=== PATIENT | female | born 1955 | race Hispanic/Latino ===

== ENCOUNTER 2017-10-11 15:33 | Outpatient (CLI) | payer BC | END 2017-10-11 15:34 | disposition home or self-care (01) | LOC: BICMAMMO 15:33 | PROVIDERS: ATTEND Family Medicine | DX: Z12.31 Encounter for screening mammogram for malignant neoplasm of breast (principal) | CPT/HCPCS: 77063; 77067 ==

== ENCOUNTER 2018-02-21 07:55 | Day surgery (SDC) | payer BC ==
[2018-02-21] MEDS ORDERED: Ondansetron PF 4 MG/2 ML Vial ONE (13:08)
[2018-02-21] MEDS ORDERED: Succinylcholine Chloride 20 MG/ML 10 ml SYRINGE FS ONE (13:08)
[2018-02-21] MEDS ORDERED: PROPOFOL 200 MG/20 ML VIAL ONE (13:08)
--- NOTE | 2018-02-21 15:40 | CON ---
DATE OF CONSULTATION: 02/21/2018 REASON FOR CONSULTATION: Esophageal food impaction. CONSULTING PHYSICIAN: Dr. Luis F Sethi. HISTORY OF PRESENT ILLNESS: The patient is a 62-year-old female with past medical history of seasonal allergies, hyperlipidemia, and hypertension, who is presenting with complaints of dysphagia/esophageal food impaction. She states that she was in her usual state of health until approximately 5:20 this morning when she swallowed a clove of garlic as part of a preventative health maintenance related to recent illnesses that she had been experiencing. When she experienced the sensation that the clove got stuck at the level of the thyroid cartilage, despite measures to drink plenty of fluids as well as induce vomiting were unsuccessful, which then prompted her to seek healthcare assistance. She went to the [facility], where she was evaluated by the physicians there with a CT scan confirming the presence of a foreign body within the esophagus on CT. Given these findings, she was subsequently transferred to [facility] for further evaluation. At this time, she does continue to complain of the sensation that something is stuck at the level of the thyroid cartilage, but is able to tolerate some liquids and end her own secretions, albeit very slowly when she does actually consume any liquids. She does endorse a history of acid reflux as well, but she is not currently taking any medications. She does also endorse intermittent use of NSAIDs, taking ibuprofen 200 to 400 mg when she does, but last use was approximately 2 to 3 weeks ago. Currently, she denies any nausea, vomiting, fevers, chills, abdominal pain, diarrhea, constipation, or GI bleeding. REVIEW OF SYSTEMS: A 10-category review of systems was obtained with all responses negative except for the pertinent positives as listed in the HPI. PAST MEDICAL HISTORY: Seasonal allergies, hyperlipidemia, hypertension, and recent bout of herpes zoster infection. PAST SURGICAL HISTORY: Cholecystectomy, tonsillectomy, total hysterectomy, appendectomy, and an EGD 30 years ago. FAMILY HISTORY: Denies any GI malignancies. SOCIAL HISTORY: Denies any tobacco, alcohol, or illicit drug use. ALLERGIES: NO KNOWN DRUG ALLERGIES. OUTPATIENT MEDICATIONS: Include; 1. Zyrtec as needed. 2. Singulair daily. 3. Atorvastatin daily. 4. Vitamin D daily. PHYSICAL EXAMINATION: VITAL SIGNS: No vital signs were listed in the computer as of yet. GENERAL: The patient is lying in bed, in no acute distress. Alert and oriented x4. HEENT AND NECK: Neck supple. No JVD or scleral icterus noted. CARDIOVASCULAR: Tachycardic rate, but regular rhythm without any discernible murmurs, gallops, or rubs. RESPIRATORY: Clear to auscultation bilaterally with no discernible wheezes or rales. ABDOMEN: Normoactive bowel sounds. Soft, nontender, and nondistended. EXTREMITIES: No cyanosis, clubbing, or edema. LABORATORY DATA: No current studies are available for review. IMAGING DATA: CT scan obtained at the [facility] [place] showed a esophageal foreign body located in the proximal and mid esophagus. ASSESSMENT AND PLAN: The patient is a 62-year-old female with past medical history of seasonal allergies, hyperlipidemia, hypertension, acid reflux, and recent bout of herpes zoster infection, presenting with esophageal food bolus impaction. 1. Food bolus impaction: The patient is presenting with a recent ingestion of a large clove of garlic that she was taking as part of preventative health measures related to recent illnesses she has been having and experiencing acute onset dysphagia characterized as a sensation that food was getting stuck at the level of the thyroid cartilage. She sought healthcare assistance at an [facility]gent [facility] with CT scan confirming the finding of an esophageal food bolus impaction and was subsequently transferred to [facility] for further care. At this time, the patient does have confirmation and clinical signs consistent with a food bolus impaction and would benefit from urgent endoscopy for removal of the foreign body. RECOMMENDATIONS: 1. We will continue n.p.o. Status. 2. We will plan for EGD later this morning with removal of the foreign body. 3. Further recommendations to follow. Job ID: [id number]
--- NOTE | 2018-02-21 16:12 | OP ---
DATE OF PROCEDURE: 02/21/2018 PROCEDURE: Esophagogastroduodenoscopy with food bolus/foreign body removal. INDICATION FOR PROCEDURE: Esophageal food bolus impaction. DESCRIPTION OF PROCEDURE: After the risks and benefits of the procedure were explained to the patient including risks of bleeding, infection, perforation, reactions to anesthesia, aspiration, and/or pain, informed consent was obtained. The patient was then taken to the endoscopy suite, where general anesthesia was administered with endotracheal intubation via Anesthesia support. Once the patient was adequately sedated and intubated, she was transferred to the left lateral decubitus position and with introduction of the standard gastroscope into the mouth and intubation of the esophagus, stomach and the proximal small intestine with the findings listed below. The patient tolerated the procedure well with no immediate perioperative complications. At the conclusion of the procedure, all equipment was removed and the patient was taken to PACU in satisfactory condition. FINDINGS: Esophagus: The food bolus/garlic clove was seen at the just distal to the upper esophageal sphincter and had impacted itself essentially on the upper esophageal sphincter. It occupied pretty much the entire esophageal lumen at that point with no visualization of the mucosa beyond. Using rat-tooth forceps, the garlic clove was then able to be successfully grasped and retrieved through the mouth. The gastroscope was then intubated into the esophagus with normal-appearing mucosa seen in the proximal, mid, and distal esophagus. There was no evidence of erosions, ulcerations, mass, lesions, stricture/stenosis, or active/recent bleeding. With careful examination of the upper esophageal sphincter, there was no stricture/choke point or inlet patch that could contribute to stricture formation. Stomach: Normal-appearing mucosa was seen in the gastric cardia, fundus, body, greater curvature, antrum, and incisura. There was no evidence of erosions, ulcerations, mass, lesions, or active/recent bleeding. Duodenum: Normal-appearing mucosa was seen in both the duodenal bulb and second portion of the duodenum. There was no evidence of erosions, ulcerations, mass, lesions, or active/recent bleeding. IMPRESSION: 1. Esophageal food bolus impaction at the upper esophageal sphincter primarily due to size of the food bolus itself with no evidence of stricture/stenosis in this region, now status post successful extraction of the food bolus. 2. Otherwise, normal upper endoscopy. RECOMMENDATIONS: 1. We would recommend the patient to maintain a liquid diet for the next 24 hours and then advance the diet as tolerated. 2. We will consider more routine administration of PPI as an outpatient, but will be determined in clinic. 3. We would have the patient follow up in the GI clinic in 3 weeks for further evaluation of any additional dysphagia type symptoms. Job ID: [id number]
== END 2018-02-21 11:25 | disposition home or self-care (01) ==
LOC: SDC 07:55
PROVIDERS: ATTEND Internal Medicine
PROC: 0DC18ZZ Extirpation of Matter from Upper Esophagus, Via Natural or Artificial Opening Endoscopic (ICD-10-PCS; principal; 2018-02-21)
DX: T18.128A Food in esophagus causing other injury, initial encounter (principal); I10 Essential (primary) hypertension; E78.5 Hyperlipidemia, unspecified; J30.2 Other seasonal allergic rhinitis; Z79.899 Other long term (current) drug therapy
CPT/HCPCS: J2405; J2704

== ENCOUNTER 2018-04-11 08:00 | Outpatient (CLI) | payer BC ==
--- NOTE | 2018-04-11 10:44 | RAD ---
DOUBLE CONTRAST ESOPHAGRAM: INDICATION: Dysphagia. FLUOROSCOPIC TIME: 1.9 minutes. Total exposure 29.9 uGy*^cm2. FINDINGS: No intraluminal mass or stricture is identified. There are tertiary contractions involving the mid t o distal esophagus. No hiatal hernia is evident. No reflux was elicited with Valsalva maneuvers. A 13 mm barium tablet passed without difficulty. IMPRESSION: 1. Tertiary contractions to the mid to distal esophagus may be related to mild esophagitis or presby esophagus. 2. No intraluminal mass, stricture, or reflux demonstrated. POS: SHELLI
== END 2018-04-11 08:01 | disposition home or self-care (01) ==
LOC: RAD 08:00
PROVIDERS: ATTEND Internal Medicine
DX: R13.19 Other dysphagia (principal)
CPT/HCPCS: 74220

== ENCOUNTER 2018-10-15 15:28 | Outpatient (CLI) | payer BC ==
--- NOTE | 2018-10-15 17:09 | MMO ---
Bilateral MAMMO Bilat Screen [facility]. CLINICAL HISTORY: Patient is 63 years old and is seen for screening. The patient has no family history of breast cancer. The patient has no personal history of cancer. VIEWS: The views performed were: bilateral craniocaudal with tomosynthesis and bilateral mediolateral oblique with tomosynthesis. FILMS COMPARED: The present examination has been compared to prior imaging studies performed at [facility] on 07/20/2014, 09/15/2015, 10/10/2016 and 10/11/2017. MAMMOGRAM FINDINGS: There are scattered fibroglandular densities. There are benign scattered densities in both breasts. There are no suspicious masses, suspicious calcifications, or new areas of architectural distortion. IMPRESSION: THERE IS NO MAMMOGRAPHIC EVIDENCE OF MALIGNANCY. A ROUTINE FOLLOW-UP MAMMOGRAM IN 1 YEAR IS RECOMMENDED. THE RESULTS OF THIS EXAM WERE SENT TO THE PATIENT. ACR BI-RADS Category 2 - Benign finding MAMMOGRAPHY NOTE: 1. A negative mammogram report should not delay a biopsy if a dominant of clinically suspicious mass is present. 2. Approximately 10% to 15% of breast cancers are not detected by mammography. 3. Adenosis and dense breasts may obscure an underlying neoplasm. Reported by: RUDI PELAEZ MD Electonically Signed: [id number]
== END 2018-10-15 15:29 | disposition home or self-care (01) ==
LOC: BICMAMMO 15:28
PROVIDERS: ATTEND Family Medicine
DX: Z12.31 Encounter for screening mammogram for malignant neoplasm of breast (principal)
CPT/HCPCS: 77063; 77067

== ENCOUNTER 2019-03-14 15:31 | Outpatient (CLI) | payer BC ==
--- NOTE | 2019-03-14 17:55 | MRI ---
MRI OF RIGHT KNEE PERFORMED WITHOUT CONTRAST ENHANCEMENT: 03/14/19 HISTORY: Acute right knee pain. The anterior as well as posterior cruciate ligaments are intact. The lateral meniscus shows a nondisplaced flap type tear involving the body of the meniscus. On the m edial side, there is also an undersurface flap type tear which has a slightly displaced component. So me meniscal tissue displaced into the meniscotibial recess. The meniscus is truncated. Medial and lateral collateral ligaments and iliotibial band regions appear unremarkable. Patellar articular cartilage is largely intact. There is an area of articular cartilage thinning invo lving the more superior aspect of the medial facet. There is subchondral cystic changes associated wi th this area. The medial and lateral patellar retinaculum and quadriceps and patellar tendons are nor mal. IMPRESSION: 1. Bilateral meniscal tears with truncated appearance of a nondisplaced flap type tear of the eliazar dy of the lateral meniscus and a more truncated slightly displaced flap type tear involving the body of the medial meniscus. 2. Mild tricompartment arthritic changes. POS: SHELLI
== END 2019-03-14 15:32 | disposition home or self-care (01) ==
LOC: SCSMRI 15:31
PROVIDERS: ATTEND Family Medicine
DX: M25.561 Pain in right knee (principal); S83.281A Other tear of lateral meniscus, current injury, right knee, initial encounter; S83.241A Other tear of medial meniscus, current injury, right knee, initial encounter; M17.11 Unilateral primary osteoarthritis, right knee

== ENCOUNTER 2021-02-07 15:26 | Outpatient (CLI) | payer BC | END 2021-02-07 15:27 | disposition home or self-care (01) | LOC: BICMAMMO 15:26 | PROVIDERS: ATTEND Family Medicine | DX: Z12.31 Encounter for screening mammogram for malignant neoplasm of breast (principal) | CPT/HCPCS: 77063; 77067 ==

== ENCOUNTER 2025-01-15 14:37 | Outpatient (CLI) | payer BC | END 2025-01-15 14:38 | disposition home or self-care (01) | LOC: BICMAMMO 14:37 | PROVIDERS: ATTEND Family Medicine | DX: Z13.21 Encounter for screening for nutritional disorder (principal) | CPT/HCPCS: 77063; 77067 ==